=== PATIENT | female | born 1970 | race Caucasian/White ===

== ENCOUNTER 2017-06-30 09:55 | Emergency (ER) | payer BC, OTHER ==
[2017-06-30 09:59] VITALS: BP 124/84
--- NOTE | 2017-06-30 12:26 | ED ---
Laceration/Wound HPI - HPI Summary HPI Summary: 47 female presents to ED with complaints of laceration to left thigh that occurred just [employer] while using a blade for a school project. Patient states bleeding is controlled. It is a gaping wound. Denies blood thinners. No other injuries or complaints. Is able to walk and bear weight. Denies FB and bony involvement. No other complaints or PMHx. Tetanus is up to date within the last 5 years. - History of Current Complaint Stated Complaint: LT LEG LAC Time Seen by Provider: 06/30/17 10:15 Hx Obtained From: Patient Hx Last Menstrual Period: one month ago due anytime. Mechanism of Injury: Sharp/Blunt Trauma Onset/Duration: Sudden Onset, Lasting Hours Aggravating: Movement Alleviating: Compression Timing: Constant Onset Severity: Mild Current Severity: Mild Pain Intensity: 3 Pain Scale Used: 0-10 Numeric Associated Signs & Symptoms: Negative - Allergy/Home Medications Allergies/Adverse Reactions: Allergies Allergy/AdvReac Type Severity Reaction Status Date / Time No Known Allergies Allergy Verified 10/31/12 11:56 PMH/Surg Hx/FS Hx/Imm Hx Endocrine/Hematology History: Reports: Hx Thyroid Disease Cardiovascular History: Denies: Hx Hypertension Respiratory History: Denies: Hx Asthma - Surgical History Surgery Procedure, Year, and Place: n/a - Immunization History Date of Tetanus Vaccine: within last 5 years Immunizations Up to Date: Yes Infectious Disease History: No Infectious Disease History: Denies: Traveled Outside the [place] in Last 30 Days - Family History Known Family History: Positive: None - Social History Alcohol Use: Rare Substance Use Type: Reports: None, Other Smoking Status (MU): Never Smoked Tobacco Review of Systems Constitutional: Negative Cardiovascular: Negative Respiratory: Negative Musculoskeletal: Negative Positive: Other - laceration anterior left thigh Neurological: Negative All Other Systems Reviewed And Are Negative: Yes Physical Exam Triage Information Reviewed: Yes Vital Signs On Initial Exam: Initial Vitals Temp Pulse Resp BP Pulse Ox 98.3 F 81 16 124/84 100 06/30/17 09:56 06/30/17 09:56 06/30/17 09:56 06/30/17 09:56 06/30/17 09:56 Vital Signs Reviewed: Yes Appearance: Positive: Well-Appearing, No Pain Distress, Well-Nourished Skin: Positive: Warm, Skin Color Reflects Adequate Perfusion, Dry, Other - 3cm linear laceration to left anterior thigh approximately .5cm width. no active bleeding, some oozing. No other lacerations noted. Normal skin exam otherwise. No ecchymosis, edema or other signs of trauma.. Negative: Cold, Numb, Cyanosis @, Pale Head/Face: Positive: Normal Head/Face Inspection Eyes: Positive: Conjunctiva Clear ENT: Positive: Hearing grossly normal Neck: Positive: Supple, Nontender Respiratory/Lung Sounds: Positive: Clear to Auscultation, Breath Sounds Present. Negative: Rales, Rhonchi, Wheezes Cardiovascular: Positive: Normal, RRR, Pulses are Symmetrical in both Upper and Lower Extremities - 2+ pedal and radial. Negative: Murmur, Rub Abdomen Description: Positive: Nontender, Soft Musculoskeletal: Positive: Normal, Strength/ROM Intact. Negative: Limited @, Interruption @, Pain @, Edema Left, Edema Right Neurological: Positive: Normal, Sensory/Motor Intact - sensation intact, Alert, Oriented to Person Place, Time, CN Intact II-III, Reflexes Intact, NV Bundle Intact Distally, Normal Gait - Shanice Coma Scale Coma Scale Total: 15 Procedures - Laceration/Wound Repair 1 Location: lower extremity - left anterior thigh Description: Linear Anesthesia: Local, 1.0%, Lido Length, Depth and Shape: 3cm linear length superficial subcutaneous layer Betadine Prep?: Yes Irrigated w/ Saline (ccs): 300 Laceration/Wound Explored: clean, no foreign body removed Closure: Single Layer Suture Type: Prolene - 4-0 Number of Sutures: 5 Layer Closure?: No Sterile Dressing Applied?: Yes Diagnostics - Vital Signs Vital Signs Temp Pulse Resp BP Pulse Ox 06/30/17 09:56 98.3 F 81 16 124/84 100 - Laboratory Lab Statement: Any lab studies that have been ordered have been reviewed, and results considered in the medical decision making process. Laceration Repair Course/Dx - Course Course Of Treatment: due to [place] and PE findings no need for xray at this time. laceration was sutured with 5 simple interrupted sutures without complication. No other complaints at this time. Tetanus already UTD within last 5 years. Tolerated procedure well. Removed in 7 days. Aware of worsening signs and symtptoms. Triple antibiotic. Keep clean and dry. Follow up with PCP. - Differential Dx Differental Diagnoses: Avulsion, Laceration - Clinical Impression Provider Diagnoses: Laceration of left thigh Discharge - Discharge Plan Condition: Stable Disposition: HOME Patient Education Materials: Laceration (ED), Care For Your Stitches (ED) Referrals: Enriqueta Marie MD [Primary Care Provider] - Additional Instructions: Keep sutures clean and dry for 24 hours. After you may gently rinse, do not scrub or submerge in water. Apply triple antibiotic and dress. Have sutures removed in 7 days. Any new or worsening symptoms such as infection please seek medical attention sooner. Follow up with PCP.
== END 2017-06-30 12:40 | disposition home or self-care (01) ==
LOC: ED 09:55
DX: S71.112A Laceration without foreign body, left thigh, initial encounter (principal); W45.8XXA Other foreign body or object entering through skin, initial encounter; Y93.89 Activity, other specified; Y92.9 Unspecified place or not applicable; E07.9 Disorder of thyroid, unspecified
CPT/HCPCS: 12002; 99282